=== PATIENT | female | born 1995 | race Caucasian/White ===

== ENCOUNTER 2024-09-30 23:50 | Emergency (ER) | payer OTHER ==
[~2024-09-30] VITALS: Ht 160 cm; Wt 66.0 kg
[2024-10-01 00:02] VITALS: BP 108/72; TEMP 97; O2SAT 98
[2024-10-01] MEDS ORDERED: CEFD300C PO (03:04)
[2024-10-01] MEDS ORDERED: PYRI1TAB5 PO (03:04)
[2024-10-01] MEDS: PHENAZOPYRIDINE 100 MG TAB PO ONE (03:59)
[2024-10-01] MEDS: CEFDINIR 300 MG CAP (OMNICEF) PO ONE (03:59)
== END 2024-10-01 04:03 | disposition home or self-care (01) ==
LOC: M ED 10-01 01:56
DX: N39.0 Urinary tract infection, site not specified (principal); Z79.2 Long term (current) use of antibiotics; Z79.899 Other long term (current) drug therapy